=== PATIENT | female | born 1995 ===

== ENCOUNTER 2024-04-04 11:12 | Outpatient (CLI) | payer OTHER | END 2024-04-04 11:13 | disposition home or self-care (01) | LOC: CSHRAD 11:12 | PROVIDERS: ATTEND Family Medicine | DX: O09.33 Supervision of pregnancy with insufficient antenatal care, third trimester (principal); E03.9 Hypothyroidism, unspecified; E66.9 Obesity, unspecified; R73.03 Prediabetes; Z86.2 Personal history of diseases of the blood and blood-forming organs and certain disorders involving the immune mechanism; Z3A.32 32 weeks gestation of pregnancy | CPT/HCPCS: 76805 ==